=== PATIENT | female | born 1965 | race African-American/Black ===

== ENCOUNTER 2018-11-06 16:19 | Emergency (ER) | payer OTHER ==
[~2018-11-06] VITALS: Ht 162.6 cm; Wt 87.0 kg
[2018-11-06] MEDS ORDERED: KETOROLAC 30MG/ML VIAL IV STA (16:47)
[2018-11-06] MEDS ORDERED: SODIUM CHLORIDE 0.9% 1,000 ML IV ONE (16:47)
[2018-11-06] MEDS ORDERED: MORPHINE SULFATE 4 MG/ML CPJ (NOT FOR IM USE) IV ONE ×3 (17:00→23:15)
[2018-11-06] MEDS ORDERED: ONDANSETRON HCL 4MG/2ML INJ IV ONE ×3 (17:00→23:15)
[2018-11-06 17:07] LABS: CHLORIDE 106 mEq/L (98-107)
[2018-11-06 17:09] LABS: BASOPHILS % 0.9 % (0.0-2.0); EOSINOPHILS % 0.3 % (0.0-5.0); HEMATOCRIT. 43.7 % (36.0-48.0); HEMOGLOBIN. 14.7 g/dL (12.0-16.0); LYMPHOCYTES % 10.7 % (20.0-50.0); MEAN CORPUSCULAR HEMOGLOBIN 30.4 pg (28.0-32.0); MEAN CORPUSCULAR VOLUME 90.2 fL (81.0-99.0); MEAN PLATELET VOLUME 7.7 fl (7.4-10.4); MONOCYTES % 2.4 % (2.0-8.0); NEUTROPHILS % 85.7 % (40.0-76.0); PLATELET 306 x1000/uL (130-400); RED BLOOD CELL COUNT 4.84 mill/uL (4.2-5.4); RED CELL DISTRIBUTION WIDTH 14.2 % (11.6-14.6)
[2018-11-06] MEDS ORDERED: KETOROLAC 15MG/ML VIAL IV ONE (18:15)
[2018-11-06 18:19] LABS: CLARITY URINE CLEAR (CLEAR); COLOR URINE YELLOW (YELLOW); KETONES URINE NEGATIVE (NEGATIVE); LEUKOCYTE ESTERASE URINE NEGATIVE (NEGATIVE); NITRITE URINE NEGATIVE (NEGATIVE); OCCULT BLOOD URINE TRACE (NEGATIVE); PH URINE >=9.0 (4.5-8.0); PROTEIN URINE 2+ (NEGATIVE); SPECIFIC GRAVITY URINE 1.011 (1.005-1.030); UROBILINOGEN URINE 0.2 E.U./dL (0.2-1.0)
[2018-11-06] MEDS ORDERED: HYDRALAZINE 20MG/ML VIAL IV ONE (19:00)
[2018-11-06] MEDS ORDERED: CLONIDINE 0.1MG TABLET PO ONE (20:15)
[2018-11-07 00:22] VITALS: BP 155/94
== END 2018-11-07 00:35 | disposition short-term general hospital (02) ==
LOC: ER 16:19 → EDSEX 16:19 → ER 11-07 00:35
DX: I10 Essential (primary) hypertension (principal); R42 Dizziness and giddiness; R51 Headache; R11.0 Nausea; Z88.2 Allergy status to sulfonamides
CPT/HCPCS: 36415; 70450; 71045; 80053; 81003; 83880; 84484; 85025; 93005; 96361; 96374; 96375; 96376; 99285; J0360; J1885; J2270; J2405; J7030; Z7610